=== PATIENT | male | born 1960 | race American Indian/Alaskan Native ===

== ENCOUNTER 2018-08-04 11:37 | Outpatient (CLI) | payer BC ==
[2018-08-04 13:06] LABS: Chol/HDL Ratio 3.48 %
== END 2018-08-04 11:38 | disposition home or self-care (01) ==
LOC: LAB 11:37
PROVIDERS: ATTEND Internal Medicine
DX: E11.9 Type 2 diabetes mellitus without complications (principal); E78.5 Hyperlipidemia, unspecified; E66.9 Obesity, unspecified; I10 Essential (primary) hypertension
CPT/HCPCS: 36415; 80061; 83036

== ENCOUNTER 2018-12-08 11:05 | Outpatient (CLI) | payer BC ==
[2018-12-08 12:03] LABS: Chol/HDL Ratio 2.59 %
== END 2018-12-08 11:06 | disposition home or self-care (01) ==
LOC: LAB 11:05
PROVIDERS: ATTEND Internal Medicine
DX: E29.1 Testicular hypofunction (principal); E11.9 Type 2 diabetes mellitus without complications
CPT/HCPCS: 36415; 80061; 83036; 84153

== ENCOUNTER 2018-12-08 13:25 | Outpatient (CLI) | payer BC ==
--- NOTE | 2018-12-08 14:03 | XRay Report ---
BILATERAL KNEES STANDING AP VIEW HISTORY: Bilateral knee pain. FINDINGS: No comparison. Bone mineralization is normal. Moderate to severe medial joint space narrowing is note d in both knees. The right knee appears slightly more affected. There is mild marginal spurring from the lateral compartments bilaterally. No evidence for fracture or bone lesion. The soft tissues are u nremarkable. Signer Name: Michael Campos Jr, MD Signed: 12/08/2018 1:58 PM Workstation Name: [id number]
== END 2018-12-08 13:26 | disposition home or self-care (01) ==
LOC: XRAY 13:25
PROVIDERS: ATTEND Orthopaedic Surgery
DX: M25.861 Other specified joint disorders, right knee (principal); M25.862 Other specified joint disorders, left knee; M76.892 Other specified enthesopathies of left lower limb, excluding foot; M76.891 Other specified enthesopathies of right lower limb, excluding foot
CPT/HCPCS: 73565

== ENCOUNTER 2021-01-29 07:13 | Inpatient (IN) | payer BC ==
--- NOTE | 2021-01-23 12:32 | Anesthesia Consultation ---
Anesthesia Consult and Med Hx Date of service: 01/29/21 - Airway Anesthetic Teeth Evaluation: Crowns (Filling fell out; temporary cap) ROM Head & Neck: Adequate Mental/Hyoid Distance: Adequate Mallampati Class: Class II Intubation Access Assessment: Probably Good - Pre-Operative Health Status ASA Pre-Surgery Classification: ASA3 Proposed Anesthetic Plan: General - Pulmonary Hx Smoking: No Hx Respiratory Symptoms: No Hx Sleep Apnea: No (MARYBETH PRE SCREEN HIGH RISK) - Cardiovascular System Hx Hypertension: Yes (X 3 YRS) Hx Heart Attack/AMI: No Hx Percutaneous Transluminal Coronary Angioplasty (PTCA): No Hx Cardia Arrhythmia: No Hx Peripheral Vascular Disease: Yes (ANGELITA LEGS , STENTS X 2 RIGHT LEG) - Central Nervous System Hx Neuromuscular Disorder: Yes (Neuropathy) Hx Back Pain: Yes (NECK AND BACK PAIN) Hx Psychiatric Problems: Yes (Depression) - Gastrointestinal Hx Gastroesophageal Reflux Disease: No - Endocrine Hx Renal Disease: No Hx Liver Disease: No Hx Non-Insulin Dependent Diabetes: Yes Hx Thyroid Disease: No - Hematic Hx Anemia: No Hx Sickle Cell Disease: No - Other Systems Hx Alcohol Use: No Hx Substance Use: No Hx Cancer: No Hx Obesity: Yes (BMI 35) - Additional Comments Anesthesia Medical History Comments: Here twice; Last 09/2019. Just had venous studies and negative for DVT
[~2021-01-29 07:13] MED LIST: ACETAMINOPHEN 325 MG TAB PO SCH; CELECOXIB 200 MG CAP PO NR; MAGNESIUM OXIDE 400 MG TAB PO SCH; MIDAZOLAM 2 MG/2 ML INJ IV NR
[2021-01-29] MEDS ORDERED: BUPIVACAINE/PF (0.5%) 5 MG/1 ML 10 ML VIAL INFILTRATI ONE ×2 (07:35→10:47)
[2021-01-29] MEDS ORDERED: MORPHINE 10 MG/1 ML INJ ONE (07:37)
[2021-01-29] MEDS ORDERED: KETOROLAC 30 MG/1 ML INJ ONE (07:37)
[2021-01-29] MEDS ORDERED: SODIUM CHLORIDE 0.9% 50 ML ONE (07:37)
[2021-01-29] MEDS ORDERED: TRANEXAMIC ACID 1,000 MG/10 ML ONE (07:38)
[2021-01-29] MEDS ORDERED: SODIUM CHLORIDE 0.9% 100 ML ONE ×2 (07:38)
[2021-01-29] MEDS: LACTATED RINGERS 1,000 ML IV SCH ×2 (08:00→23:48)
[2021-01-29] MEDS ORDERED: ceFAZolin/Water 2 GM/20 ML 2 GM/20 ML SYRINGE IV NR (08:00)
[2021-01-29 08:02] LABS: Hematocrit 43.2 % (35.5-45.6); Hemoglobin 14.3 gm/dl (11.8-15.2); Mean Corpuscular HGB Conc 33 % (32-34); Mean Corpuscular Volume 92 fl (84-94); Platelet Count 167 K/mm3 (140-440); Red Blood Count 4.68 M/mm3 (3.65-5.03); Red Cell Distribution Width 14.7 % (13.2-15.2)
[2021-01-29 08:27] LABS: BUN/Creatinine Ratio 11; Blood Urea Nitrogen 10 mg/dL (9-20); Calcium 9.5 mg/dL (8.4-10.2); Hemolysis Index 11
[2021-01-29] MEDS: METOPROLOL TARTRATE 50 MG TAB PO SCH (08:30)
[2021-01-29] MEDS ORDERED: propofoL 200 MG/20 ML VIAL IV ONE (09:15)
[2021-01-29] MEDS ORDERED: LIDOCAINE MPF (2%) 20 MG/1 ML VIAL 5 ML ONE (09:33)
[2021-01-29] MEDS ORDERED: fentaNYL 100 MCG/2 ML INJ ONE (09:34)
[2021-01-29] MEDS ORDERED: ePHEDrine SULFATE 50 MG/1 ML INJ ONE (09:54)
[2021-01-29] MEDS ORDERED: KETAMINE/STERILE WATER 50 MG/ML SYRINGE ONE (10:42)
[2021-01-29] MEDS ORDERED: KETOROLAC 30 MG/1 ML INJ IV ONE (10:47)
[2021-01-29] MEDS ORDERED: SODIUM CHLORIDE 0.9% 50 ML IVPB IV ONE (10:48)
[2021-01-29] MEDS ORDERED: MORPHINE 10 MG/1 ML INJ IM ONE (10:48)
[2021-01-29] MEDS ORDERED: SODIUM CHLORIDE 0.9% 100 ML IVPB IV ONE (10:49)
[2021-01-29] MEDS ORDERED: SODIUM CHLORIDE 0.9% IRR 1,500 ML BOTTLE IR ONE (10:49)
[2021-01-29] MEDS ORDERED: SODIUM CHLORIDE 0.9% IRRIG SOLN 2000 ML IR ONE ×2 (10:50)
[2021-01-29] MEDS ORDERED: PHENYLEPHRINE/NS 1,000 MCG/10 ML SYRINGE (OR USE) IV ONE (11:25)
[2021-01-29] MEDS ORDERED: dexAMETHasone 20 MG/5 ML VIAL ONE (11:26)
[2021-01-29] MEDS ORDERED: GLYCOPYRROLATE 0.4 MG/2 ML INJ ONE (11:26)
[2021-01-29] MEDS ORDERED: NEOSTIGMINE 10MG/10 ML INJ MDV ONE (11:26)
[2021-01-29] MEDS ORDERED: ROCURONIUM 50 MG/5 ML INJ IV ONE (11:30)
[2021-01-29] MEDS ORDERED: LACTATED RINGERS 1,000 ML ONE (11:34)
[2021-01-29] MEDS ORDERED: CITRIC ACID-SOD CITRATE SOLN 500 ML IV SOLN IV ONE (11:40)
[2021-01-29] MEDS ORDERED: KETOROLAC 30 MG/1 ML INJ IV PRN (12:14)
[2021-01-29] MEDS ORDERED: MORPHINE 4 MG/1 ML INJ IV PRN (12:14)
[2021-01-29] MEDS ORDERED: MORPHINE 2 MG/1 ML INJ IV PRN (12:14)
--- NOTE | 2021-01-29 12:29 | Procedure Note ---
Date of procedure: 01/29/21 Pre-op diagnosis: Severe arthritis left hip Post-op diagnosis: same Procedure: Left total hip replacement Procedure The patient was brought to the OR and placed in the OR table in the supine position following induction intubation by anesthesia the patient's was turned into the right lateral decubitus position care was taken to protect the bony areas and a axillary roll was used and the left axilla. Left hip and thigh were then prepped and draped in the usual sterile manner. A timeout procedure was done to identify the patient and the correct operative site. Using the lateral approach incision was taken down through skin and subcutaneous the fascia annabel was incised A Charnley retractor was placed deep within the wound care was taken to enter the anterior hip capsule by the vastus lateralis and the gluteus medius tendons in the knee was flexed and internally rotated which brought us upon the anterior portion of the hip joint using a small broach and osteotomy was performed on the femoral neck approximately 2 cm to centimeters proximal to the lesser trochanter. Using Quijano retractors the the acetabular structures were evaluated the patient was noted to have some moderate changes within the acetabulum reaming was begun starting with a 45 mm diameter and advancing up to a 55 mm cup was taken to the observed bleeding bone within the acetabulum nicely 56 mm cup was inserted care was taken to maintain the proper version that being 45 abduction and 20 of anteversion and a small screw was used to stabilize this acetabular component next attention was turned to the proximal femur using a cookie cutter and the proximal femoral canal was entered this was then reamed and broached to a #5 stem And the hip joint was then reduced using a 30 neutral neck and a 32 mm head hip was reduced taken through a range of motion and was found to be stable Trial component was removed and the hip joint was then copiously irrigated the final components were inserted that being a #5 femoral stem with a 32 mm head again the hip joint was reduced and was taken through a range of motion and found stable. He was closed in a standard routine fashion. Dressings were applied the patient tolerated the procedure and there were no complications he was taken to postanesthesia recovery stable Anesthesia: GETA Surgeon: CESAR PENN (Elian Cuadra, 1st assist) Pathology: list Specimen disposition: to lab Condition: stable Disposition: PACU
--- NOTE | 2021-01-29 13:47 | XRay Report ---
LEFT HIP ; VIEW(S) INDICATION / CLINICAL INFORMATION: Postop evaluation COMPARISON: November 13, 2019 FINDINGS: BONES / JOINT(S): No acute fracture or subluxation. Patient is status post left total hip arthroplast y. The hardware is well seated without abnormality. SOFT TISSUES: Expected postoperative findings. ADDITIONAL FINDINGS: None. Signer Name: Pj Blackwell DO Signed: 01/29/2021 1:42 PM Workstation Name: Last Guide-STAR [id number]
--- NOTE | 2021-01-29 13:58 | Post Anesthesia Evaluation ---
- Post Anesthesia Evaluation Patient Participated: Yes Airway Patent: Yes Stable Respiratory Function: Yes Nausea/Vomiting: No Temp > 96.8F: Yes Pain Manageable: Yes Adequeate Hydration: Yes Anesthesia Complications: No
--- NOTE | 2021-01-29 13:58 | Anesthesia Day of Surgery ---
Anesthesia Day of Surgery - Day of Surgery Patient Examined: Yes Patient H&P Reviewed: Yes Patient is NPO: Yes
[2021-01-29] MEDS ORDERED: ONDANSETRON 4 MG/2 ML INJ IV PRN (14:30)
[2021-01-29] MEDS ORDERED: HYDROmorphone 1 MG/1 ML INJ IV PRN (15:00)
--- OUTSIDE RECORDS SUMMARY | 2021-01-29 16:08 | External Medical Summary ---
:1960 Author Organization [facility], [facility] Address [address] [place] [id number] Care Team Providers Name Role Phone DavidReagan Unavailable [phone] PROBLEMS Type Condition ICD9-CM [id number] Onset Condition W/U Status Risk SNOM ED Notes Code Code Dates Status Code Problem Peripheral I73.9 Active confirmed 702139735 vascular disease, unspecified Problem Essential I10 Active confirmed 95402451 (primary) hypertension Problem Hyperlipidemi E78.5 Active confirmed 762712 04 a, unspecified Problem Pain in M25.50 Active 87395771 Jose-Ri unspecified ts joint Problem Body mass Z68.41 Active confirmed 314955748 index [BMI]40.0-44. 9, adult Problem Testicular E29.1 Active confirmed 006163122 hypofunction Problem Dietary Z71.3 Active confirmed 417051058 counseling and surveillance Problem Obesity, E66.9 Active confirmed 132215590 unspecified Problem Type 2 E11.9 Active confirmed 279411026 diabetes mellitus without complications Problem Bilateral M17.0 Active confirmed 106365114 primary osteoarthriti s of knee Problem Unilateral M17.11 Active confirmed 139149848 primary osteoarthriti s, right knee Problem Unilateral M16.12 Active confirmed 959523992 primary osteoarthriti s, left hip ALLERGIES No Known Allergies ENCOUNTERS from 1960 to 2021-01-29 Encounter Location Date Provider Diagnosis [address], [place] [address] IMMUNIZATIONS Vaccine Route Administration Date Status Influenza IM Intramuscular May 11, 2019 Administered SOCIAL HISTORY Sex Assigned At : Social History Observation Description Sex Assigned At Unknown REASON FOR REFERRAL from 1960 to 2021-01-29 Reason Total Hip Replacement Diagnosis 1 Essential (primary) hyperten velia (I10) Diagnosis 2 Peripheral vascular disease, unspecified (I73.9) Diagnosis 3 Obesity, unspecified (E66.9) Diagnosis 4 Hyperlipidemia, unspecified (E78.5) Diagnosis 5 Unilateral primary osteoarth ritis, left hip (M16.12) Diagnosis 6 Pain in right knee (M25.561) Diagnosis 7 Type 2 diabetes mellitus wit hout complications (E11.9) Referral Organization [facility] Referring Provider First Name Reagan Referring Provider Last Name David Referring Provider Specialty Orthopedic Surgery Referred Provider [facility], - Referral Priority Routine VITAL SIGNS No information MEDICATIONS Medication SIG (Take, Route, Notes Start Date End Date Status Frequency, Duration) Compression Stockings 1 pair N/A Once for May, Active N/A 999 days Olmesartan 1 tablet Orally Once a Ac tive Medoxomil-HCTZ 20-12.5 day for 90 days MG Metoprolol Tartrate 100 1 tablet with food Active MG Orally Twice a day for 90 days Rosuvastatin Calcium 10 1 tablet Orally Once a Active MG day for 90 days Multivitamin Adult Active amLODIPine Besylate 10 1 tablet Orally Once a Active MG day for 90 days Klor-Con M10 10 MEQ TAKE ONE TABLET BY Not-Taking MOUTH DAILY metFORMIN HCl ER 500 MG 1 tablet with evening Active meal Orally Once a day for 90 days PROCEDURES No Information RESULTS No Results REASON FOR VISIT LT THR MEDICAL (GENERAL) HISTORY Type Description Date Medical History varicose veins Medical History obesity Medical History peripheral vascular disease Medical History noncompliance Medical History edema right lower extremity Medical History pain right knee mostly Medical History hypertension Surgical History varicose veins right leg Surgical History Right knee replacement 12/2019 Surgical History Nerve Block Left Hip 06/28/2019 Hospitalization History No Hospitalization history informati on Goals Section No Information Health Concerns No Information MEDICAL EQUIPMENT No Information MENTAL STATUS No Information FUNCTIONAL STATUS No Information ASSESSMENTS No Information PLAN OF TREATMENT Referrals Referral Date Details Total Hip Replacement Insurance Providers Payer Name Payer Address Payer Insured Name Patient Coverage Co ver[place] End Phone Relationship to Start Date Fly e Insured BCBS [facility] [address] [phone] [facility] [phone] [id number]
[2021-01-30 06:15] LABS: Hematocrit 37.6 % (35.5-45.6); Hemoglobin 12.4 gm/dl (11.8-15.2)
[2021-01-30] MEDS: METOPROLOL TARTRATE 50 MG TAB PO SCH (10:07)
[2021-01-30] MEDS: ENOXAPARIN 40 MG/0.4 ML INJ SUB-Q SCH (10:07)
--- NOTE | 2021-01-30 13:21 | Post Anesthesia Evaluation ---
- Post Anesthesia Evaluation Patient Participated: Yes Airway Patent: Yes Stable Respiratory Function: Yes Nausea/Vomiting: No Temp > 96.8F: Yes Pain Manageable: Yes Adequeate Hydration: Yes Anesthesia Complications: No Block Receding Appropriately: No Patient on Ventilator: No
--- NOTE | 2021-01-30 14:50 | Progress Note ---
Subjective Date of service: 01/30/21 Principal diagnosis: S/P THR LEFT Hip Interval history: S: This is a 60-year-old gentleman who is 1 day postop from elective total hip replacement, left hip. He is doing well and has no complaints except for some expected pain. O: The appearing large frame overweight middle-age male. He is awake and alert quite pleasant. Exam limited to the left lower extremity. There is an Aquacel dressing in place without any signs of drainage or skin change. He is able to do a straight leg raise with assistance. There is no pain with an inward and outward passive rotation of the femur. The calf is supple and negative Homans' sign. Neurovascular examination normal A: Satisfactory postop course; status post total hip replacement left hip P: Continue as per protocol for total joint replacement with appropriate DVT prophylaxis as they are doing. He needs more concentrated physical therapy which is also ordered. May be able to be discharged tomorrow if he is continues to do well. Pain management. VT prophylaxis as per protocol. Discharge plan jenny Objective Vital signs: Vital Signs - 12hr 01/30/21 01/30/21 01/30/21 05:29 10:05 10:07 Temperature 97.9 F 98.3 F Pulse Rate 78 86 84 Respiratory 16 20 Rate Blood Pressure 115/64 123/70 123/70 O2 Sat by Pulse 97 96 Oximetry 01/30/21 01/30/21 14:00 14:39 Temperature Pulse Rate Respiratory 20 Rate Blood Pressure O2 Sat by Pulse 95 Oximetry - Labs CBC & BMP: 01/30/21 05:22 01/29/21 07:45 Labs: Abnormal lab results 01/29/21 01/29/21 01/30/21 Range/Units 16:50 21:44 07:49 POC Glucose 168 H 222 H 168 H (70-105) mg/dL 01/30/21 Range/Units 10:46 POC Glucose 149 H (70-105) mg/dL
[2021-01-30] MEDS ORDERED: NON-FORMULARY EACH (Amlodipine Besylate 10 MG) PO SCH (21:00)
[2021-01-30] MEDS ORDERED: ONDANSETRON 4 MG/2 ML INJ IV PRN (21:02)
[2021-01-30] MEDS ORDERED: ACETAMINOPHEN 325 MG TAB PO PRN (21:02)
[2021-01-30] MEDS ORDERED: NON-FORMULARY EACH (Rosuvastatin Calcium [Crestor] 10 MG Tablet) PO SCH (21:15)
[2021-01-30] MEDS ORDERED: NON-FORMULARY EACH (Olmesartan/Hydrochlorothiazide [Olmesartan-Hctz 20-12.5 Mg Tab] 1 EACH PO SCH (21:15)
[2021-01-30] MEDS: METOPROLOL TARTRATE 100 MG TAB PO SCH ×2 (22:20→22:26)
[2021-01-30] MEDS: ASPIRIN EC 81 MG TAB PO SCH (22:23)
[2021-01-30] MEDS: LOSARTAN 50 MG TAB PO SCH (22:23)
[2021-01-30] MEDS: hydroCHLOROthiazide 12.5 MG CAP PO SCH (22:23)
[2021-01-30] MEDS: amLODIPine 10 MG TAB PO SCH (22:25)
[2021-01-30] MEDS: CELECOXIB 200 MG CAP PO SCH (22:29)
[2021-01-31 04:52] LABS: Basophils % (Auto) 0.4 % (0.0-1.8); Eosinophils # (Auto) 0.1 K/mm3 (0.0-0.4); Eosinophils % (Auto) 0.8 % (0.0-4.3); Hematocrit 34.9 % (35.5-45.6); Hemoglobin 11.4 gm/dl (11.8-15.2); Lymphocytes # (Auto) 2.2 K/mm3 (1.2-5.4); Lymphocytes % (Auto) 30.7 % (13.4-35.0); Mean Corpuscular HGB Conc 33 % (32-34); Mean Corpuscular Volume 93 fl (84-94); Monocytes # (Auto) 0.8 K/mm3 (0.0-0.8); Platelet Count 145 K/mm3 (140-440); Red Blood Count 3.77 M/mm3 (3.65-5.03); Red Cell Distribution Width 14.5 % (13.2-15.2)
[2021-01-31 05:20] LABS: BUN/Creatinine Ratio 21; Blood Urea Nitrogen 19 mg/dL (9-20); Calcium 8.1 mg/dL (8.4-10.2); Hemolysis Index 6
--- NOTE | 2021-01-31 07:32 | Consultation ---
History of Present Illness - Reason for Consult Consult date: 01/30/21 Medical management Requesting physician: CESAR PENN - History of Present Illness 60-year-old male admitted for left total hip arthroplasty. Postop patient doing well. Patient has a history of hypertension diabetes osteoarthritis and hyperlipidemia. No shortness of breath. No fever or chills. Resting comfortably. Past History Past Medical History: arthritis, diabetes, hypertension, hyperlipidemia Past Surgical History: total hip replacement (Left) Social history: lives with family, full code Family history: hypertension Medications and Allergies Allergies Allergy/AdvReac Type Severity Reaction Status Date / Time chocolate flavor Allergy Mild Rash Verified 01/30/21 03:05 Home Medications Medication Instructions Recorded Confirmed Last Taken Type Metoprolol [Lopressor] 100 mg PO BID 01/09/19 01/30/21 01/29/21 08:00 History 100 mg Olmesartan/Hydrochlorothiazide 1 tab PO DAILY 01/09/19 01/30/21 01/28/21 10:00 History [Olmesartan-Hctz 20-12.5 mg Tab] 1 tab Rosuvastatin Calcium [Crestor] 10 mg PO DAILY 01/09/19 01/22/21 2 Days Ago History ~09/25/19 metFORMIN [Glucophage] 500 mg PO QDAY 01/09/19 01/30/21 01/23/21 08:00 History 500 mg Amlodipine Besylate 10 mg PO DAILY 09/19/19 01/30/21 01/15/21 08:00 History 10 mg Aspirin EC [Halfprin EC] 81 mg PO QDAY 12/05/20 01/30/21 01/15/21 08:00 History 81 mg Celecoxib [celeBREX] 200 mg PO BID 12/05/20 01/30/21 Unknown History Cider Vinegar [Apple Cider Vinegar] 300 mg PO DAILY 12/05/20 01/22/21 Unknown History Ibuprofen [Advil Migraine] 200 mg PO PRN PRN 12/05/20 01/22/21 Unknown History Krill/Om-3/Dha/Epa/Phospho/Ast 1 each PO DAILY 12/05/20 01/30/21 01/26/21 08:00 History [Megared [place]-3 Krill Oil Sfgl] 1 tab Multivit-Min/FA/Lycopen/Lutein 1 each PO DAILY 12/05/20 01/22/21 Unknown History [Centrum Silver Men Tablet] Active Meds: Active Medications Acetaminophen (Acetaminophen 325 Mg Tab) 650 mg PO Q4H PRN PRN Reason: Pain MILD(1-3)/Fever >100.5/NAVARRO Amlodipine Besylate (Amlodipine 10 Mg Tab) 10 mg PO DAILY [facility] Last Admin: 01/30/21 22:25 Dose: Not Given Documented by: Aspirin (Aspirin Ec 81 Mg Tab) 81 mg PO QDAY [facility] Last Admin: 01/30/21 22:23 Dose: 81 mg Documented by: Atorvastatin Calcium (Atorvastatin 20 Mg Tab) 20 mg PO QHS [facility] Last Admin: 01/30/21 22:22 Dose: 20 mg Documented by: Celecoxib (Celecoxib 200 Mg Cap) 200 mg PO BID [facility] Last Admin: 01/30/21 22:29 Dose: 200 mg Documented by: Enoxaparin Sodium (Enoxaparin 40 Mg/0.4 Ml Inj) 40 mg SUB-Q QDAY [facility] Last Admin: 01/30/21 10:07 Dose: 40 mg Documented by: Hydrochlorothiazide (Hydrochlorothiazide 12.5 Mg Cap) 12.5 mg PO QDAY [facility] Last Admin: 01/30/21 22:23 Dose: 12.5 mg Documented by: Lactated Ringer's (Lactated Ringers) 1,000 mls @ 125 mls/hr IV DIRECT [facility] Last Admin: 01/29/21 23:48 Dose: 125 mls/hr Documented by: Ketorolac Tromethamine (Ketorolac 30 Mg/1 Ml Inj) 15 mg IV Q6H PRN PRN Reason: Pain, Moderate (4-6) Stop: 02/03/21 12:13 Last Admin: 01/31/21 05:21 Dose: 15 mg Documented by: Losartan Potassium (Losartan 50 Mg Tab) 50 mg PO QDAY [facility] Last Admin: 01/30/21 22:23 Dose: 50 mg Documented by: Metformin HCl (Metformin 500 Mg Tab) 500 mg PO QDAY [facility] Metoprolol Tartrate (Metoprolol Tartrate 50 Mg Tab) 100 mg PO QDAY [facility] Last Admin: 01/30/21 10:07 Dose: 100 mg Documented by: Metoprolol Tartrate (Metoprolol Tartrate 100 Mg Tab) 100 mg PO BID [facility] Last Admin: 01/30/21 22:26 Dose: Not Given Documented by: Morphine Sulfate (Morphine 2 Mg/1 Ml Inj) 2 mg IV Q4H PRN PRN Reason: Pain, Moderate (4-6) Last Admin: 01/30/21 14:39 Dose: 2 mg Documented by: Morphine Sulfate (Morphine 4 Mg/1 Ml Inj) 4 mg IV Q4H PRN PRN Reason: Pain , Severe (7-10) Last Admin: 01/30/21 00:07 Dose: 4 mg Documented by: Ondansetron HCl (Ondansetron 4 Mg/2 Ml Inj) 4 mg IV Q8H PRN PRN Reason: Nausea And Vomiting Sodium Chloride (Sodium Chloride 0.9% 10 Ml Flush Syringe) 10 ml IV PRN NR Stop: 03/01/21 23:59 Sodium Chloride (Sodium Chloride 0.9% 10 Ml Flush Syringe) 10 ml IV BID [facility]I Last Admin: 01/30/21 22:24 Dose: 10 ml Documented by: Sodium Chloride (Sodium Chloride 0.9% 10 Ml Flush Syringe) 10 ml IV PRN PRN PRN Reason: LINE FLUSH Review of Systems All systems: negative Exam - Constitutional Vitals: Temp Pulse Resp BP Pulse Ox 98.2 F 59 L 16 123/75 98 01/31/21 05:15 01/31/21 05:15 01/31/21 05:15 01/31/21 05:15 01/31/21 05:15 General appearance: Present: no acute distress, well-nourished - EENT Eyes: Present: PERRL ENT: hearing intact, clear oral mucosa - Neck Neck: Present: supple, normal ROM - Respiratory Respiratory effort: normal Respiratory: bilateral: CTA - Cardiovascular Heart rate: 78 Rhythm: regular Heart Sounds: Present: S1 & S2. Absent: rub, click - Extremities Extremities: no ischemia, pulses intact, pulses symmetrical, No edema Peripheral Pulses: within normal limits - Abdominal General gastrointestinal: Present: soft, non-tender, non-distended, normal bowel sounds Male genitourinary: Present: normal - Rectal Rectal Exam: deferred - Integumentary Integumentary: Present: clear, warm, dry - Musculoskeletal Musculoskeletal: gait normal, strength equal bilaterally - Psychiatric Psychiatric: appropriate mood/affect, intact judgment & insight - Neurologic Neurologic: CNII-XII intact, moves all extremities - Allied Health Allied health notes reviewed: nursing, case management Results - Labs CBC & Chem 7: 01/31/21 04:00 01/31/21 04:00 Labs: Abnormal lab results 01/30/21 01/30/21 01/30/21 Range/Units 07:49 10:46 15:49 Hgb (11.8-15.2) gm/dl Hct (35.5-45.6) % [place] % (Auto) (0.0-7.3) % Potassium (3.6-5.0) mmol/L Glucose (75-100) mg/dL POC Glucose 168 H 149 H 138 H (70-105) mg/dL Hemoglobin A1c (4-6) % Calcium (8.4-10.2) mg/dL 01/30/21 01/31/21 01/31/21 Range/Units 21:39 04:00 04:00 Hgb 11.4 L (11.8-15.2) gm/dl Hct 34.9 L (35.5-45.6) % [place] % (Auto) 11.0 H (0.0-7.3) % Potassium 3.5 L (3.6-5.0) mmol/L Glucose 149 H (75-100) mg/dL POC Glucose 122 H (70-105) mg/dL Hemoglobin A1c (4-6) % Calcium 8.1 L (8.4-10.2) mg/dL 01/31/21 Range/Units 04:00 Hgb (11.8-15.2) gm/dl Hct (35.5-45.6) % [place] % (Auto) (0.0-7.3) % Potassium (3.6-5.0) mmol/L Glucose (75-100) mg/dL POC Glucose (70-105) mg/dL Hemoglobin A1c 6.3 H (4-6) % Calcium (8.4-10.2) mg/dL Short CBC 01/31/21 Range/Units 04:00 WBC 7.2 (4.5-11.0) K/mm3 Hgb 11.4 L (11.8-15.2) gm/dl Hct 34.9 L (35.5-45.6) % Plt Count 145 (140-440) K/mm3 BMP 01/31/21 04:00 Sodium 140 Potassium 3.5 L Chloride 104.4 Carbon Dioxide 25 BUN 19 Creatinine 0.9 Glucose 149 H Calcium 8.1 L Assessment and Plan - Patient Problems (1) S/P total left hip arthroplasty Current Visit: Yes Status: Acute Plan to address problem: PT and OT Discharge planning issues per orthopedics (2) Hypertension Current Visit: Yes Status: Chronic Qualifiers: Hypertension type: primary hypertension Qualified Code(s): I10 - Essential (primary) hypertension Plan to address problem: Well controlled Continue home antihypertensives and adjust medications as necessary (3) T2DM (type 2 diabetes mellitus) Current Visit: Yes Status: Chronic Qualifiers: Diabetes mellitus senior living insulin use: without senior living use Plan to address problem: Continue oral hypoglycemics and coverage Check hemoglobin A1c (4) Hyperlipidemia Current Visit: Yes Status: Chronic Qualifiers: Hyperlipidemia type: mixed hyperlipidemia Qualified Code(s): E78.2 - Mixed hyperlipidemia Plan to address problem: Continue statins (5) Osteoarthritis Current Visit: Yes Status: Chronic Plan to address problem: Patient is on Celebrex-continue the same (6) DVT prophylaxis Current Visit: Yes Status: Acute Plan to address problem: On heparin and GI prophylaxis
[2021-01-31] MEDS: METOPROLOL TARTRATE 50 MG TAB PO SCH (09:59)
[2021-01-31] MEDS ORDERED: metFORMIN 500 MG TAB PO SCH (10:00)
[2021-01-31] MEDS: amLODIPine 10 MG TAB PO SCH (10:00)
[2021-01-31] MEDS: hydroCHLOROthiazide 12.5 MG CAP PO SCH (10:00)
[2021-01-31] MEDS: LOSARTAN 50 MG TAB PO SCH (10:00)
[2021-01-31] MEDS: METOPROLOL TARTRATE 100 MG TAB PO SCH (10:00)
[2021-01-31] MEDS: CELECOXIB 200 MG CAP PO SCH (10:00)
[2021-01-31] MEDS: ASPIRIN EC 81 MG TAB PO SCH (10:00)
[2021-01-31] MEDS: ENOXAPARIN 40 MG/0.4 ML INJ SUB-Q SCH (10:00)
[2021-01-31 10:01] VITALS: BP 152/81
[2021-01-31] MEDS ORDERED: INSULIN LISPRO 100 UNIT/ML SUB-Q SCH (11:30)
--- NOTE | 2021-01-31 14:02 | Progress Note ---
Assessment and Plan (1) S/P total left hip arthroplasty Current Visit: Yes Status: Acute Plan to address problem: PT and OT Discharge planning issues per orthopedics (2) Hypertension Current Visit: Yes Status: Chronic Qualifiers: Hypertension type: primary hypertension Qualified Code(s): I10 - Essential (primary) hypertension Plan to address problem: Well controlled Continue home antihypertensives and adjust medications as necessary (3) T2DM (type 2 diabetes mellitus) Current Visit: Yes Status: Chronic Qualifiers: Diabetes mellitus termite treater helper insulin use: without termite treater helper use Plan to address problem: Continue oral hypoglycemics and coverage Check hemoglobin A1c (4) Hyperlipidemia Current Visit: Yes Status: Chronic Qualifiers: Hyperlipidemia type: mixed hyperlipidemia Qualified Code(s): E78.2 - Mixed hyperlipidemia Plan to address problem: Continue statins (5) Osteoarthritis Current Visit: Yes Status: Chronic Plan to address problem: Patient is on Celebrex-continue the same (6) DVT prophylaxis Current Visit: Yes Status: Acute Plan to address problem: On heparin and GI prophylaxis Subjective Date of service: 01/31/21 Principal diagnosis: S/P THR LEFT Hip Objective - Constitutional Vitals: Vital Signs - 12hr 01/31/21 01/31/21 01/31/21 05:15 07:57 09:59 Temperature 98.2 F Pulse Rate 59 L 78 Respiratory 16 Rate Blood Pressure 123/75 152/81 O2 Sat by Pulse 98 95 Oximetry - Labs CBC & Chem 7: 01/31/21 04:00 01/31/21 04:00 Labs: Abnormal lab results 01/30/21 01/30/21 01/31/21 Range/Units 15:49 21:39 04:00 Hgb 11.4 L (11.8-15.2) gm/dl Hct 34.9 L (35.5-45.6) % [place] % (Auto) 11.0 H (0.0-7.3) % Potassium (3.6-5.0) mmol/L Glucose (75-100) mg/dL POC Glucose 138 H 122 H (70-105) mg/dL Hemoglobin A1c (4-6) % Calcium (8.4-10.2) mg/dL 01/31/21 01/31/21 01/31/21 Range/Units 04:00 04:00 12:12 Hgb (11.8-15.2) gm/dl Hct (35.5-45.6) % [place] % (Auto) (0.0-7.3) % Potassium 3.5 L (3.6-5.0) mmol/L Glucose 149 H (75-100) mg/dL POC Glucose 117 H (70-105) mg/dL Hemoglobin A1c 6.3 H (4-6) % Calcium 8.1 L (8.4-10.2) mg/dL
--- NOTE | 2021-02-01 13:18 | Discharge Summary ---
Providers - Providers Date of Admission: 01/29/21 12:14 Date of discharge: 01/31/21 Attending physician: CESAR PENN MD 01/29/21 12:20 Physical Therapy Evaluation and Treat [CONS] Routine Comment: Reason For Exam: post op evaluation Weight bearing status?: Full wt bearing Assistive devices?: Yes If so list: Walker 01/30/21 11:13 Consult to Physician [CONS] Urgent Comment: Hospitalist Consulting Provider: CESAR PENN Physician Instructions: Reason For Exam: Medical follow up care 01/30/21 17:00 Consult to Physician [CONS] Urgent Comment: Consulting Provider: SUE NOLASCO Physician Instructions: Reason For Exam: Medical Follow up Primary care physician: ROSEANN SANTOYO Hospitalization Condition: Good Hospital course: 60-year-old male admitted for left total hip arthroplasty by orthopedic surgeon. Postop patient doing well. Patient has a history of hypertension diabetes osteoarthritis and hyperlipidemia. Patient was evaluated by physical therapy and recommended home health PT OT. Patient was then discharged home in stable condition after orthopedic clearance. Disposition: 01 HOME / SELF CARE / HOMELESS Final Discharge Diagnosis (Prints w/discharge instructions): (1) S/P total left hip arthroplasty. (2) Hypertension. (3) T2DM (type 2 diabetes mellitus). (4) Hyperlipidemia. (5) Osteoarthritis. (6) Morbid obesity Time spent for discharge: 34 minutes Core Measure Documentation - Palliative Care Palliative Care/ Comfort Measures: Not Applicable - Core Measures Any of the following diagnoses?: none Exam - Physical Exam Narrative exam: General appearance: Present: no acute distress, well-nourished morbidly obese - EENT Eyes: Present: PERRL ENT: hearing intact, clear oral mucosa - Neck Neck: Present: supple, normal ROM - Respiratory Respiratory effort: normal Respiratory: bilateral: CTA - Cardiovascular Heart rate: 78 Rhythm: regular Heart Sounds: Present: S1 & S2. Absent: rub, click - Extremities Extremities: no ischemia, pulses intact, pulses symmetrical, No edema Peripheral Pulses: within normal limits - Abdominal General gastrointestinal: Present: soft, non-tender, non-distended, normal bowel sounds Male genitourinary: Present: normal - Rectal Rectal Exam: deferred - Integumentary Integumentary: Present: clear, warm, dry - Musculoskeletal Musculoskeletal: gait normal, strength equal bilaterally - Psychiatric Psychiatric: appropriate mood/affect, intact judgment & insight - Neurologic Neurologic: CNII-XII intact, moves all extremities - Constitutional Vitals: Temp Pulse Resp BP Pulse Ox 98.2 F 78 16 152/81 95 01/31/21 05:15 01/31/21 09:59 01/31/21 05:15 01/31/21 09:59 01/31/21 07:57 Plan Activity: advance as tolerated Weight Bearing Status: Non-Weight Bearing Diet: low fat, low salt Additional Instructions: Follow-up with your orthopedic surgeon in 1 week Follow up with: ROSEANN SANTOYO MD [Primary Care Provider] - 7 Days Prescriptions: Apixaban [Eliquis] 2.5 mg PO BID #30 tablet oxyCODONE /ACETAMINOPHEN [Percocet 5/325] 1 tab PO Q6HR PRN #20 tablet PRN Reason: Pain Oxycodone HCl/Acetaminophen [Percocet 7.5/325 mg] 1 each PO Q6HR PRN #20 tablet PRN Reason: Pain
== END 2021-01-31 19:16 | disposition home or self-care (01) | DRG 470 ==
LOC: OR 07:13 → EDSTATUS 08:00 → 3A 12:14
PROVIDERS: ADMIT Orthopaedic Surgery; ATTEND Orthopaedic Surgery
PROC: 0SRB0JZ Replacement of Left Hip Joint with Synthetic Substitute, Open Approach (ICD-10-PCS; principal; 2021-01-29)
DX: M16.12 Unilateral primary osteoarthritis, left hip (principal); Z68.41 Body mass index [BMI] 40.0-44.9, adult; Z20.822 Contact with and (suspected) exposure to COVID-19; I10 Essential (primary) hypertension; E11.51 Type 2 diabetes mellitus with diabetic peripheral angiopathy without gangrene; Z82.49 Family history of ischemic heart disease and other diseases of the circulatory system; E66.01 Morbid (severe) obesity due to excess calories
CPT/HCPCS: 36415; 80048; 82962; 83036; 85014; 85018; 85025; 85027; 88305; G0378; A4217; A9270-GY; C1776; J0690; J1100; J1170; J1650; J1885; J2250; J2270; J2370; J2704; J2710; J3010; J3246; J3490; J7120; U0003

== ENCOUNTER 2021-05-22 13:21 | Outpatient (CLI) | payer BC ==
--- NOTE | 2021-05-22 14:42 | XRay Report ---
Left hip 3 views INDICATION: Left hip pain IMPRESSION: The left hip arthroplasty is intact. There is no evidence of periprosthetic fracture. Sev ere degenerative changes of the right hip present. Signer Name: Alex Luna MD Signed: 05/22/2021 2:37 PM Workstation Name: [id number]
== END 2021-05-22 13:22 | disposition home or self-care (01) ==
LOC: XRAY 13:21
PROVIDERS: ATTEND Orthopaedic Surgery
DX: M16.12 Unilateral primary osteoarthritis, left hip (principal)

== ENCOUNTER 2021-11-12 10:04 | Outpatient (CLI) | payer BC | END 2021-11-12 10:05 | disposition home or self-care (01) | LOC: LABHHL 10:04 | PROVIDERS: ATTEND Internal Medicine | DX: E11.9 Type 2 diabetes mellitus without complications (principal) | CPT/HCPCS: 36415; 83036 ==